=== PATIENT | female | born 1975 | race Caucasian/White ===

== ENCOUNTER 2017-02-07 11:40 | Emergency (ER) | payer MEDICARE, MEDICAID ==
[2016-06-13 10:35] VITALS: BMI 27.4
[~2017-02-07 11:40] MED LIST: BAYER CHEWABLE81 MG PO; CALCIUM PO; COUMADIN5 MG PO; DEMEROL50 MG PO; ESTRACE1 MG PO; HYDROCODONE-APA1 TAB PO; IBUPROFEN800 MG PO; MACRODANTIN100 MG PO; MINIVELLE1 EAC1 TRANSDERM; MIRALAX17 GM PO; MS CONTIN15 MG PO; MULTI-DAY VITAM1 TAB PO; NITROSTAT0.4 MG SL; NORVASC5 MG PO; OMEPRAZOLE40 MG PO; PERCOCET 10/3251 TA1 PO; PERCOCET 5/3251 TA1 PO; PHENERGAN25 MG RC; PRILOSEC20 MG PO; PRINZIDE 20/12.1 TAB PO; ULTRAM50 MG PO; VITAMIN D PO; Wellbutrin PO; ZOFRAN ODT4 MG/UDTAB PO
== END 2017-02-07 15:28 | disposition left against medical advice (07) ==
LOC: D.ER 11:40
DX: R05 Cough (principal)

== ENCOUNTER 2017-03-10 22:43 | Emergency (ER) | payer MEDICARE, MEDICAID ==
[2016-06-13 10:35] VITALS: BMI 27.4
== END 2017-03-11 00:40 | disposition home or self-care (01) ==
LOC: D.ER 22:43
DX: S61.452A Open bite of left hand, initial encounter (principal); W64.XXXA Exposure to other animate mechanical forces, initial encounter; Y93.89 Activity, other specified; Y92.89 Other specified places as the place of occurrence of the external cause; S69.92XA Unspecified injury of left wrist, hand and finger(s), initial encounter; K21.9 Gastro-esophageal reflux disease without esophagitis; I10 Essential (primary) hypertension

== ENCOUNTER 2017-03-27 23:31 | Emergency (ER) | payer MEDICARE, MEDICAID ==
[2016-06-13 10:35] VITALS: BMI 27.4
[2017-03-28 00:14] LABS: APPEARANCE CLEAR (CLEAR); BACTERIA NONE SEEN /hpf (NONE SEEN); BILIRUBIN NEGATIVE (NEGATIVE); COLOR YELLOW (YELLOW); EPITHELIAL CELLS RARE /hpf (0-5); GLUCOSE NEGATIVE (NEGATIVE); KETONE NEGATIVE (NEGATIVE); LEUKOCYTE ESTERASE TRACE (NEGATIVE); NITRITE NEGATIVE (NEGATIVE); PROTEIN NEGATIVE (NEGATIVE); RED CELLS - URINE NONE SEEN /hpf (0-5); UROBILINOGEN NORMAL (NORMAL); WHITE CELLS - URINE 0-5 /hpf (0-5)
[2017-03-28 00:15] LABS: BASOPHILS 0.1 % (0-2); EOSINOPHILS 0 % (0-7); HEMATOCRIT 37.3 % (36.0-48.0); HEMOGLOBIN 12.2 g/dL (12-16); IMMATURE GRANULOCYTES 0.4 % (0-5); LYMPHOCYTES 5.6 % (15-50); MCHC 32.7 g/dL (31.0-37.0); MCV 97.9 fL (80.0-100.0); MEAN PLATELET VOLUME 10.4 fL (7.4-10.4); MONOCYTES 8.7 % (2-11); NEUTROPHILS 85.2 % (40-80); PLATELET COUNT 201 10x3/uL (130-400); RBC 3.81 10x6/uL (4.00-5.40); RDW 14.4 % (11.5-14.5); WBC 14.2 10x3/uL (4.8-10.8)
[2017-03-28 00:30] LABS: ANION GAP 8.7 mmol/L (8-16); CALCIUM 8.3 mg/dL (8.5-10.1); CARBON DIOXIDE 28.7 mmol/L (21.0-32.0); CREATININE - SERUM 1.1 mg/dL (0.6-1.3); POTASSIUM - SERUM 3.4 mmol/L (3.5-5.1)
[2017-03-28 01:07] LABS: BILIRUBIN - TOTAL 0.69 mg/dL (0.2-1.3); LIPASE 90 U/L (73-393)
[2017-03-28 01:09] LABS: ALBUMIN 3.2 g/dL (3.4-5.0); BILIRUBIN - TOTAL 0.69 mg/dL (0.2-1.3); PROTEIN - SERUM 6.3 g/dL (6.4-8.2)
== END 2017-03-28 03:21 | disposition home or self-care (01) ==
LOC: D.ER 23:31
PROVIDERS: Emergency Medicine
DX: A08.4 Viral intestinal infection, unspecified (principal); K21.9 Gastro-esophageal reflux disease without esophagitis; I10 Essential (primary) hypertension; F17.200 Nicotine dependence, unspecified, uncomplicated

== ENCOUNTER 2017-07-01 10:44 | Emergency (ER) | payer MEDICARE, MEDICAID ==
[2016-06-13 10:35] VITALS: BMI 27.4
== END 2017-07-01 13:24 | disposition home or self-care (01) ==
LOC: D.ER 10:44
DX: L02.416 Cutaneous abscess of left lower limb (principal); I71.2 Thoracic aortic aneurysm, without rupture; K21.9 Gastro-esophageal reflux disease without esophagitis; I10 Essential (primary) hypertension

== ENCOUNTER 2017-07-04 11:02 | Emergency (ER) | payer MEDICARE, MEDICAID ==
[2016-06-13 10:35] VITALS: BMI 27.4
== END 2017-07-04 11:28 | disposition home or self-care (01) ==
LOC: D.ER 11:02
DX: L02.416 Cutaneous abscess of left lower limb (principal); Z48.00 Encounter for change or removal of nonsurgical wound dressing; K21.9 Gastro-esophageal reflux disease without esophagitis; I10 Essential (primary) hypertension

== ENCOUNTER → 2017-10-27 09:30 | Outpatient (CLI) | payer MEDICARE, MEDICAID ==
[2016-06-13 10:35] VITALS: BMI 27.4
== END | disposition home or self-care (01) ==
LOC: D.NM 09:30
DX: M25.561 Pain in right knee (principal)

== ENCOUNTER → 2018-01-15 22:03 | Outpatient (CLI) | payer MEDICARE, MEDICAID ==
[2016-06-13 10:35] VITALS: BMI 27.4
== END | disposition home or self-care (01) ==
LOC: D.MAMMO 15:15
DX: Z12.31 Encounter for screening mammogram for malignant neoplasm of breast (principal)

== ENCOUNTER 2018-05-06 10:53 | Emergency (ER) | payer MEDICARE, MEDICAID ==
[~2018-05-06] VITALS: Ht 162.6 cm; Wt 77.7 kg
[2018-05-06 10:59] VITALS: Ht 162.6 cm; Wt 77.7 kg
[2018-05-06 11:40] LABS: BASOPHILS 0.2 % (0-2); EOSINOPHILS 1.3 % (0-7); HEMATOCRIT 39.7 % (36.0-48.0); HEMOGLOBIN 13.7 g/dL (12-16); IMMATURE GRANULOCYTES 0.6 % (0-5); LYMPHOCYTES 22.6 % (15-50); MCH 32.1 pg (26.0-34.0); MCHC 34.5 g/dL (31.0-37.0); MEAN PLATELET VOLUME 10.4 fL (7.4-10.4); MONOCYTES 6.7 % (2-11); NEUTROPHILS 68.6 % (40-80); RBC 4.27 10x6/uL (4.00-5.40); RDW 13.5 % (11.5-14.5); WBC 8.9 10x3/uL (4.8-10.8)
[2018-05-06 11:44] LABS: PLATELET COUNT 271 10x3/uL (130-400)
[2018-05-06 11:45] LABS: APPEARANCE HAZY (CLEAR); BILIRUBIN NEGATIVE (NEGATIVE); COLOR YELLOW (YELLOW); GLUCOSE NEGATIVE (NEGATIVE); KETONE NEGATIVE (NEGATIVE); NITRITE NEGATIVE (NEGATIVE); PROTEIN NEGATIVE (NEGATIVE); SPECIFIC GRAVITY 1.015 (1.005-1.020); UROBILINOGEN NORMAL (NORMAL)
[2018-05-06 11:52] LABS: ALBUMIN 3.5 g/dL (3.4-5.0); ALKALINE PHOSPHATASE 68 U/L (46-116); ALT (SGPT) 33 U/L (10-68); AMYLASE - SERUM 61 U/L (25-115); CALC OSMOLALITY 277 mosm/kg (275-300); CALCIUM 9.4 mg/dL (8.5-10.1); CARBON DIOXIDE 30.3 mmol/L (21.0-32.0); CHLORIDE - SERUM 104 mmol/L (98-107); CREATININE - SERUM 0.8 mg/dL (0.6-1.3); LIPASE 125 U/L (73-393); PROTEIN - SERUM 7.7 g/dL (6.4-8.2); SODIUM 140 mmol/L (136-145); UREA NITROGEN 10 mg/dL (7-18); eGFR NON AFRICAN AMERICAN 83 mL/min (90-120)
[2018-05-06 11:59] LABS: GLUCOSE 107 mg/dL (74-106)
[2018-05-06 12:00] LABS: POTASSIUM - SERUM 4.3 mmol/L (3.5-5.1)
[2018-05-06 13:55] VITALS: BP 135/94
== END 2018-05-06 13:58 | disposition home or self-care (01) ==
LOC: D.ER 10:53
PROVIDERS: Family Medicine
DX: R10.9 Unspecified abdominal pain (principal); R51 Headache; M54.5 Low back pain

== ENCOUNTER → 2019-03-07 12:28 | Outpatient (CLI) | payer MEDICARE, MEDICAID ==
[2018-05-06 10:59] VITALS: BMI 29.4
== END | disposition home or self-care (01) ==
LOC: D.HCCARDIO 12:28
PROVIDERS: ATTEND Internal Medicine Cardiovascular Disease
DX: I35.0 Nonrheumatic aortic (valve) stenosis (principal)

== ENCOUNTER → 2019-03-08 08:25 | Outpatient (CLI) | payer MEDICARE, MEDICAID ==
[2018-05-06 10:59] VITALS: BMI 29.4
== END | disposition home or self-care (01) ==
LOC: D.CT 03-03 11:30
PROVIDERS: ATTEND Internal Medicine Cardiovascular Disease
DX: I35.0 Nonrheumatic aortic (valve) stenosis (principal)

== ENCOUNTER → 2019-03-15 08:32 | Outpatient (CLI) | payer MEDICARE, MEDICAID | END | disposition home or self-care (01) | LOC: D.NM 08:32 | DX: M25.561 Pain in right knee (principal) ==

== ENCOUNTER → 2019-03-18 10:02 | Outpatient (CLI) | payer MEDICARE, MEDICAID ==
[2018-05-06 10:59] VITALS: BMI 29.4
[2019-03-18 10:48] LABS: BASOPHILS 0.3 % (0-2); EOSINOPHILS 0.8 % (0-7); HEMATOCRIT 44.6 % (36.0-48.0); HEMOGLOBIN 15.6 g/dL (12-16); IMMATURE GRANULOCYTES 1.6 % (0-5); LYMPHOCYTES 20.1 % (15-50); MCH 32.6 pg (26.0-34.0); MCV 93.3 fL (80.0-100.0); MEAN PLATELET VOLUME 10.2 fL (7.4-10.4); NEUTROPHILS 72.2 % (40-80); PLATELET COUNT 276 10x3/uL (130-400); RBC 4.78 10x6/uL (4.00-5.40); RDW 13.6 % (11.5-14.5)
[2019-03-18 12:15] LABS: ERYTHROCYTE SEDIMENTATION RATE 30 mm/hr (0-20)
== END | disposition home or self-care (01) ==
LOC: D.LAB 10:02
PROVIDERS: ATTEND Nurse Practitioner Family
DX: M25.561 Pain in right knee (principal)

== ENCOUNTER → 2019-03-24 17:32 | Outpatient (CLI) | payer MEDICARE, MEDICAID ==
[2018-05-06 10:59] VITALS: BMI 29.4
== END | disposition home or self-care (01) ==
LOC: D.LABREF 17:32
PROVIDERS: ATTEND Orthopaedic Surgery
DX: M25.561 Pain in right knee (principal)

== ENCOUNTER 2019-09-02 10:15 | Outpatient (CLI) | payer MEDICARE, MEDICAID ==
[~2019-09-02] VITALS: Ht 162.6 cm; Wt 76.4 kg
[2019-09-02 10:37] LABS: BASOPHILS 0.2 % (0-2); EOSINOPHILS 1.6 % (0-7); HEMATOCRIT 45.8 % (36.0-48.0); HEMOGLOBIN 15.5 g/dL (12-16); IMMATURE GRANULOCYTES 0.2 % (0-5); LYMPHOCYTES 31.1 % (15-50); MCHC 33.8 g/dL (31.0-37.0); MCV 94.4 fL (80.0-100.0); MEAN PLATELET VOLUME 10.2 fL (7.4-10.4); MONOCYTES 6.2 % (2-11); NEUTROPHILS 60.7 % (40-80); PLATELET COUNT 302 10x3/uL (130-400); RBC 4.85 10x6/uL (4.00-5.40); RDW 13.3 % (11.5-14.5)
[2019-09-02 10:53] LABS: ANION GAP 11.5 mmol/L (8-16); CARBON DIOXIDE 31.4 mmol/L (21.0-32.0); CREATININE - SERUM 0.9 mg/dL (0.6-1.3); POTASSIUM - SERUM 3.9 mmol/L (3.5-5.1)
[2019-09-02 10:56] LABS: APTT 30.7 SECONDS (22.8-39.4); INR 1.13 (0.85-1.17)
[2019-09-02 11:20] VITALS: BP 134/93; Ht 162.6 cm; Wt 76.4 kg
--- NOTE | 2019-09-02 15:53 | NUR ---
1500-DISCHARGE CRITERIA MET. REMOVED IV FROM LAC WITH CATH INTACT, DISPOSED INTO SHARPS,COVERED SITE WITH BANDAID. REVIEWED POST OP INSTRUCTIONS WITH PT. VERBALIZED UNDERSTANDING. AWAITING FOR MOTHER TO ARRIVE FOR TRANSPORTATION.
--- NOTE | 2019-09-02 15:55 | NUR ---
1535-MOTHER ARRIVED. ESCORTED OUT VIA W/C WITH MOTHER AWAITING TO DRIVE HOME.
== END 2019-09-02 15:35 | disposition home or self-care (01) ==
LOC: D.SP 10:15 → D.CT 13:00 → D.SP 15:35
PROVIDERS: Radiology Diagnostic Radiology; ATTEND Legal Medicine
DX: R16.0 Hepatomegaly, not elsewhere classified (principal)

== ENCOUNTER → 2020-01-12 12:11 | Outpatient (CLI) | payer MEDICARE, MEDICAID ==
[2019-09-02 11:20] VITALS: BMI 28.9
== END | disposition home or self-care (01) ==
LOC: D.MRI 12:11
PROVIDERS: ATTEND Orthopaedic Surgery
DX: M25.552 Pain in left hip (principal)

== ENCOUNTER → 2020-03-21 09:31 | Outpatient (CLI) | payer MEDICARE, MEDICAID ==
[2019-09-02 11:20] VITALS: BMI 28.9
== END | disposition home or self-care (01) ==
LOC: D.HCCECHO 09:31
PROVIDERS: ATTEND Internal Medicine Cardiovascular Disease
DX: I35.2 Nonrheumatic aortic (valve) stenosis with insufficiency (principal)

== ENCOUNTER 2020-04-19 22:11 | Emergency (ER) | payer MEDICARE, MEDICAID ==
[~2020-04-19] VITALS: Ht 162.6 cm; Wt 75.0 kg
[2020-04-19 22:39] VITALS: Ht 162.6 cm; Wt 75.0 kg
[2020-04-20 02:06] VITALS: BP 157/98
== END 2020-04-20 02:06 | disposition home or self-care (01) ==
LOC: D.ER 22:11
DX: Z91.14 Patient's other noncompliance with medication regimen (principal); I10 Essential (primary) hypertension; E11.9 Type 2 diabetes mellitus without complications; J45.909 Unspecified asthma, uncomplicated; K21.9 Gastro-esophageal reflux disease without esophagitis; M54.5 Low back pain; R22.43 Localized swelling, mass and lump, lower limb, bilateral

== ENCOUNTER 2020-05-09 10:38 | Emergency (ER) | payer MEDICARE, MEDICAID ==
[~2020-05-09] VITALS: Ht 162.6 cm; Wt 80.0 kg
[2020-05-09 10:44] VITALS: Ht 162.6 cm; Wt 80.0 kg
[2020-05-09 10:56] LABS: BASOPHILS 0.2 % (0-2); EOSINOPHILS 1.5 % (0-7); HEMATOCRIT 44.5 % (36.0-48.0); HEMOGLOBIN 14.6 g/dL (12-16); IMMATURE GRANULOCYTES 0.6 % (0-5); LYMPHOCYTES 19.7 % (15-50); MCH 31.2 pg (26.0-34.0); MCHC 32.8 g/dL (31.0-37.0); MCV 95.1 fL (80.0-100.0); MEAN PLATELET VOLUME 9.3 fL (7.4-10.4); MONOCYTES 6.5 % (2-11); NEUTROPHILS 71.5 % (40-80); PLATELET COUNT 272 10x3/uL (130-400); RBC 4.68 10x6/uL (4.00-5.40); RDW 13.6 % (11.5-14.5); WBC 9.6 10x3/uL (4.8-10.8)
[2020-05-09 11:02] LABS: CALC OSMOLALITY 277 mosm/kg (275-300); CALCIUM 9.3 mg/dL (8.5-10.1); CARBON DIOXIDE 32.8 mmol/L (21.0-32.0); CHLORIDE - SERUM 100 mmol/L (98-107); GLUCOSE 157 mg/dL (74-106); POTASSIUM - SERUM 3.5 mmol/L (3.5-5.1); SODIUM 137 mmol/L (136-145); UREA NITROGEN 15 mg/dL (7-18); eGFR NON AFRICAN AMERICAN 63 mL/min (90-120)
[2020-05-09 11:06] LABS: PROTIME 13.1 SECONDS (11.6-15.0)
[2020-05-09 11:19] LABS: ALBUMIN 3.7 g/dL (3.4-5.0); ALKALINE PHOSPHATASE 80 U/L (30-120); ALT (SGPT) 43 U/L (10-68); BILIRUBIN - TOTAL 0.45 mg/dL (0.2-1.3); CKMB 0.6 U/L (0.0-3.6); CREATINE KINASE 45 UL (21-215); MAGNESIUM - SERUM 1.7 mg/dL (1.8-2.4); PROTEIN - SERUM 7.7 g/dL (6.4-8.2); TROPONIN-I < 0.017 ng/mL (0.000-0.060)
[2020-05-09] MEDS ORDERED: NAPROSYN500 MG PO (11:36)
[2020-05-09 12:00] VITALS: BP 133/96
== END 2020-05-09 12:06 | disposition home or self-care (01) ==
LOC: D.ER 10:38
PROVIDERS: Family Medicine
DX: R07.89 Other chest pain (principal); Z86.79 Personal history of other diseases of the circulatory system; E11.9 Type 2 diabetes mellitus without complications; I10 Essential (primary) hypertension; K21.9 Gastro-esophageal reflux disease without esophagitis; J45.909 Unspecified asthma, uncomplicated; R51 Headache

== ENCOUNTER 2020-05-20 17:21 | Emergency (ER) | payer MEDICARE, MEDICAID ==
[~2020-05-20 17:21] MED LIST changes: +NAPROSYN500 MG PO
[2020-05-20 17:32] VITALS: Ht 162.6 cm
[2020-05-20 18:11] LABS: BASOPHILS 0.2 % (0-2); EOSINOPHILS 0.5 % (0-7); HEMATOCRIT 40.6 % (36.0-48.0); HEMOGLOBIN 13.2 g/dL (12-16); IMMATURE GRANULOCYTES 0.5 % (0-5); LYMPHOCYTES 16.5 % (15-50); MCH 31.1 pg (26.0-34.0); MCHC 32.5 g/dL (31.0-37.0); MCV 95.5 fL (80.0-100.0); MEAN PLATELET VOLUME 9.4 fL (7.4-10.4); MONOCYTES 7.9 % (2-11); NEUTROPHILS 74.4 % (40-80); RBC 4.25 10x6/uL (4.00-5.40); RDW 13.7 % (11.5-14.5); WBC 6.5 10x3/uL (4.8-10.8)
[2020-05-20 18:13] LABS: PLATELET COUNT 187 10x3/uL (130-400)
[2020-05-20 18:20] LABS: ANION GAP 7.7 mmol/L (8-16); CALCIUM 8.2 mg/dL (8.5-10.1); CARBON DIOXIDE 29.4 mmol/L (21.0-32.0); CREATININE - SERUM 1.1 mg/dL (0.6-1.3); POTASSIUM - SERUM 3.1 mmol/L (3.5-5.1)
[2020-05-20 18:22] LABS: BILIRUBIN NEGATIVE (NEGATIVE); GLUCOSE NEGATIVE (NEGATIVE); KETONE NEGATIVE (NEGATIVE); NITRITE NEGATIVE (NEGATIVE); UROBILINOGEN NORMAL (NORMAL)
[2020-05-20 18:26] LABS: ALBUMIN 3.4 g/dL (3.4-5.0); BILIRUBIN - TOTAL 0.33 mg/dL (0.2-1.3); PROTEIN - SERUM 6.8 g/dL (6.4-8.2)
[2020-05-20] MEDS ORDERED: ZOFRAN ODT4 MG/UDTAB PO (20:25)
[2020-05-20 21:09] VITALS: BP 123/80
== END 2020-05-20 21:11 | disposition home or self-care (01) ==
LOC: D.ER 17:21
PROVIDERS: Family Medicine
DX: R50.9 Fever, unspecified (principal); E83.51 Hypocalcemia; E87.6 Hypokalemia; B34.9 Viral infection, unspecified; E11.65 Type 2 diabetes mellitus with hyperglycemia; I10 Essential (primary) hypertension; J45.909 Unspecified asthma, uncomplicated; K21.9 Gastro-esophageal reflux disease without esophagitis; R05 Cough; R11.10 Vomiting, unspecified; R10.9 Unspecified abdominal pain